=== PATIENT | female | born 1955 | race Caucasian/White ===

== ENCOUNTER 2017-02-06 23:11 | Emergency (ER) | payer BC, OTHER ==
[~2017-02-06] VITALS: Ht 152.4 cm; Wt 47.2 kg
[~2017-02-06 23:11] MED LIST: HYDROCODONE; IBUP-1060 PO; UNK CHOLESTEROL MED; UNK HTN MED
[2017-02-06 23:21] VITALS: BP 128/69
--- NOTE | 2017-02-06 23:23 | PHYS DOC ---
Past Medical History Past Medical History: High Cholesterol, Hypertension Additional Past Medical Histor: chronic back pain Past Surgical History: Other Additional Past Surgical Histo: pelvic fx repair, back sx Alcohol Use: Occasionally Drug Use: None Adult General Chief Complaint Chief Complaint: KNEE INJURY HPI HPI Patient is a 61 year old female presents to the emergency department stating that she was trying to go over a wooden gate that she uses to keep her dog's in 1 location. She states that she fell injuring her right knee. She denies any numbness or tingling into the foot. She does state that she has pain that radiates from the knee into the lower leg. Review of Systems Review of Systems Constitutional: Denies fever or chills [] Eyes: Denies change in visual acuity, redness, or eye pain [] HENT: Denies nasal congestion or sore throat [] Respiratory: Denies cough or shortness of breath [] Cardiovascular: No additional information not addressed in HPI [] GI: Denies abdominal pain, nausea, vomiting, bloody stools or diarrhea [] : Denies dysuria or hematuria [] Musculoskeletal: Denies back pain. Right knee pain and discomfort Integument: Denies rash or skin lesions [] Neurologic: Denies headache, focal weakness or sensory changes [] Endocrine: Denies polyuria or polydipsia [] All other systems were reviewed and found to be within normal limits, except as documented in this note. Allergies Allergies Allergies Coded Allergies Type Severity Reaction Last Updated Verified Penicillins Allergy Unknown Hives 07/19/13 Yes naproxen Allergy Unknown hives, itching 07/19/13 Yes Physical Exam Physical Exam Constitutional: Well developed, well nourished, no acute distress, non-toxic appearance. [] HENT: Normocephalic, atraumatic, bilateral external ears normal, oropharynx moist, no oral exudates, nose normal. [] Eyes: PERRLA, EOMI, conjunctiva normal, no discharge. [] Neck: Normal range of motion, no tenderness, supple, no stridor. [] Cardiovascular:Heart rate regular rhythm Skin: Warm, dry, no erythema, no rash. [] Back: No tenderness Extremities: Right anterior knee tenderness, no cyanosis, no clubbing, ROM intact, no edema. Peripheral pulses 2+ cap refill brisk < 2 seconds. Patient with full ROM however does exhibit discomfort. Patient was noted to have swelling, no discoloration noted. Neurologic: Alert and oriented X 3, normal motor function, normal sensory function, no focal deficits noted. [] Psychologic: Affect normal, judgement normal, mood normal. [] Current Patient Data Vital Signs Vital Signs Date Time Temp Pulse Resp B/P (MAP) Pulse Ox O2 Delivery O2 Flow Rate FiO2 02/06/17 23:21 97.9 95 18 97 Room Air 97.9 EKG EKG [] Radiology/Procedures Radiology/Procedures [] Course & Med Decision Making Course & Med Decision Making Pertinent Labs and Imaging studies reviewed. (See chart for details) Right knee x-ray was negative for any bony abnormalities per Dr. Lema. Patient will be placed in a Gen wrap with recommendations for ice packs on 20 minutes off 20 minutes several times a day. Patient states that she can take ibuprofen. Therefore recommended ibuprofen 800 mg every 8 hours with food stop taking if he developed an upset stomach. Also states that she had been taking hydrocodone for severe pain and discomfort. She states that she has hydrocodone left over however they are 5 years old. Upon looking the patient up in [facility] patient last refill of hydrocodone was 08/02/16 for 60 pills. Patient was encouraged to follow up with her orthopedic doctor which she states she has. Patient was provided with signs and symptoms to return back to the emergency department. Also recommended elevation as much as possible. I've spoken with the patient and/or caregivers. I've explained the patient's condition, diagnosis and treatment plan based on information available to me at this time. I've answered the patient's and/or caregivers questions and addressed any concerns. The patient and/or caregivers have a good understanding the patient's diagnosis, condition and treatment plan as can be expected at this point. Vital signs have been stabilized. The patient's condition is stable for discharge from the emergency department. The patient will pursue further outpatient evaluation with her primary care provider or other designated consulting physician as outlined in the discharge instructions. Patient and/or caregivers are agreeable to this plan of care and follow-up instructions have been explained in detail. The patient and/or caregivers have received these instructions in written format and expressed understanding of these discharge instructions. The patient and her caregivers are aware that if any significant change in condition or worsening of symptoms should prompt him to immediately return to this of the closest emergency department. If an emergent department is not readily available I would encourage him to call 911. [] Dragon Disclaimer Dragon Disclaimer This electronic medical record was generated, in whole or in part, using a voice recognition dictation system. Departure Departure Impression: Primary Impression: Right knee pain Disposition: HOME, SELF-CARE Condition: STABLE Referrals: NO PCP (PCP) Patient Instructions: Elastic Bandage and RICE, Knee Sprain, [id number] Additional Instructions: Activity as tolerated Ibuprofen 800 mg every 8 hours with food, stop taking if you develop upset stomach Ice packs on 20 minutes and off 20 minutes several times a day Elevation as much as possible Wear the gen wrap for the next 7-10 days Followup with primary care provider or orthopedic in 7-10 days Return to emergency department as needed for signs and symptoms that become worse. Problem Qualifiers Primary Impression: Right knee pain Chronicity: unspecified Qualified Codes: M25.561 - Pain in right knee ANNA HOOKS APRN Feb 06, 2017 23:23
--- NOTE | 2017-02-07 07:50 | RAD ---
KNEE RIGHT 4V History:right knee pain and injury, injury tonight Comparison: None Findings:4 views of the right knee are submitted. No acute fracture or dislocation is identified by radiographs. There is mild osteoarthritic change. There is likely small loose body of the medial compartment. Impression: 1.No acute osseous abnormality is identified.
== END 2017-02-07 00:04 | disposition home or self-care (01) ==
LOC: ER 23:11
DX: S89.91XA Unspecified injury of right lower leg, initial encounter (principal); G89.29 Other chronic pain; E78.00 Pure hypercholesterolemia, unspecified; I10 Essential (primary) hypertension; Z88.0 Allergy status to penicillin; Z88.8 Allergy status to other drugs, medicaments and biological substances; W18.39XA Other fall on same level, initial encounter; Y93.89 Activity, other specified; Y99.8 Other external cause status; Y92.89 Other specified places as the place of occurrence of the external cause
CPT/HCPCS: 73564; 99284

== ENCOUNTER 2017-04-21 12:04 | Emergency (ER) | payer OTHER, BC ==
[2017-04-21 12:54] LABS: BILIRUBIN,URINE NEGATIVE (NEG); CLARITY,URINE CLEAR; COLOR,URINE YELLOW; GLUCOSE,URINE NEGATIVE (NEG); NITRITE,URINE NEGATIVE (NEG); PH,URINE 7.5; PROTEIN,URINE NEGATIVE (NEG-TRACE); UROBILINOGEN,URINE 0.2 mg/dL (0.2 mg/dL)
[2017-04-21 13:07] LABS: BACTERIA,URINE 0 /HPF (0-FEW); SQUAMOUS EPITHELIAL CELL,UR FEW /LPF
== END 2017-04-21 14:25 | disposition home or self-care (01) ==
LOC: ER 12:04
DX: R10.9 Unspecified abdominal pain (principal); M54.5 Low back pain; E78.00 Pure hypercholesterolemia, unspecified; G89.29 Other chronic pain; I10 Essential (primary) hypertension; Z87.442 Personal history of urinary calculi; Z88.0 Allergy status to penicillin; Z88.5 Allergy status to narcotic agent; V49.88XA Car occupant (driver) (passenger) injured in other specified transport accidents, initial encounter; Y93.89 Activity, other specified; Y99.8 Other external cause status; Y92.413 State road as the place of occurrence of the external cause
CPT/HCPCS: 72100; 72170; 81001; 87086; 99285-25

== ENCOUNTER 2018-11-10 10:41 | Emergency (ER) | payer OTHER ==
[~2018-11-10] VITALS: Ht 149.9 cm; Wt 48.5 kg
[2018-11-10] MEDS ORDERED: IV NORMAL SALINE 1000ML BAG 1,000 ML IV ONE (11:00)
[2018-11-10 11:26] LABS: BASO # 0.1 x10^3/uL (0.0-0.2); BASO % 1 % (0-3); EOS # 0.1 x10^3/uL (0.0-0.7); EOS % 1 % (0-3); HEMATOCRIT 44.9 % (36.0-47.0); HEMOGLOBIN 15.2 g/dL (12.0-15.5); LYMPH # 1.9 x10^3/uL (1.0-4.8); LYMPH % 27 % (24-48); MEAN CORPUSCULAR HEMOGLOBIN 31 pg (25-35); MEAN CORPUSCULAR HGB CONC 34 g/dL (31-37); MEAN CORPUSCULAR VOLUME 92 fL (79-100); MONO # 0.4 x10^3/uL (0.0-1.1); MONO % 6 % (0-9); NEUT # 4.9 x10^3/uL (1.8-7.7); NEUT % 66 % (31-73); PLATELET COUNT 259 x10^3/uL (140-400); RED BLOOD COUNT 4.89 x10^6/uL (3.50-5.40); RED CELL DISTRIBUTION WIDTH 12.8 % (11.5-14.5); WHITE BLOOD COUNT 7.3 x10^3/uL (4.0-11.0)
[2018-11-10 11:32] LABS: CALCIUM 8.9 mg/dL (8.5-10.1); CREATININE 0.7 mg/dL (0.6-1.0); GFR 84.8
[2018-11-10 11:38] LABS: ALBUMIN 3.9 g/dL (3.4-5.0); ALBUMIN/GLOBULIN RATIO 1.1 (1.0-1.7); TOTAL BILIRUBIN 0.5 mg/dL (0.2-1.0); TOTAL PROTEIN 7.3 g/dL (6.4-8.2)
--- NOTE | 2018-11-10 11:50 | EKG ---
[facility] [address] [place] [address] Test Date: 2018-11-10 Test Time: 11:03:38 Pat Name: JUMA BAKER Department: Room: Gender: F Boom Tender: : 1955 Requested By: BROOKE MANRIQUEZ Order Number: [id number] Reading MD: Marlo Mclaughlin MD Measurements Intervals [place] Rate: 75 P: 62 AL: 150 QRS: 57 QRSD: 84 T: 57 QT: 350 QTc: 393 Interpretive Statements SINUS RHYTHM Electronically Signed On 11-10-2018 18:15:45 CDT by Marlo Mclaughlin MD
--- NOTE | 2018-11-10 12:05 | PHYS DOC ---
Past Medical History Past Medical History: High Cholesterol, Kidney Stone, Other Additional Past Medical Histor: chronic back pain Past Surgical History: Other Additional Past Surgical Histo: uterine ablation, back surgery Alcohol Use: None Drug Use: None Adult General Chief Complaint Chief Complaint: NEAR SYNCOPE HPI HPI Patient is a 63 year old female who presents via EMS with complaining of near- syncope. Patient states she didn't eat breakfast this morning and was in [place] to take her dog to the vet clinic and running a lot and while standing in the vet clinic, felt dizzy and lightheadedness without chest pain, focal neuro deficit, nausea and vomiting, headache, blurred vision shortness of breath. Patient had a near-syncopal fall or head injury or loss of consciousness. EMS reported that patient had blood pressure of 80s with standing up and treated with IV fluid with improvement of her condition. Patient denies any problem at arrival to ER. Review of Systems Review of Systems Constitutional: Denies fever or chills [] Eyes: Denies change in visual acuity, redness, or eye pain [] HENT: Denies nasal congestion or sore throat [] Respiratory: Denies cough or shortness of breath [] Cardiovascular: No additional information not addressed in HPI [] GI: Denies abdominal pain, nausea, vomiting, bloody stools or diarrhea [] : Denies dysuria or hematuria [] Musculoskeletal: Denies back pain or joint pain [] Integument: Denies rash or skin lesions [] Neurologic: Denies headache, focal weakness or sensory changes [] Endocrine: Denies polyuria or polydipsia [] All other systems were reviewed and found to be within normal limits, except as documented in this note. Current Medications Current Medications Current Medications Medications (Trade) Dose Ordered Sig/Kip Start Time Stop Time Status Last Admin Dose Admin Sodium Chloride 1,000 ml @ 1,000 mls/hr 1X ONCE 11/10/18 11:00 11/10/18 11:59 Allergies Allergies Allergies Coded Allergies Type Severity Reaction Last Updated Verified Penicillins Allergy Unknown Hives 07/19/13 Yes naproxen Allergy Unknown hives, itching 07/19/13 Yes Physical Exam Physical Exam Constitutional: Well developed, well nourished, mild distress, non-toxic appearance. [] HENT: Normocephalic, atraumatic. Eyes: PERRLA, EOMI, conjunctiva normal, no discharge. [] Neck: Normal range of motion, no tenderness, supple, no stridor. [] Cardiovascular:Heart rate regular rhythm, no murmur [] Lungs & Thorax: Bilateral breath sounds clear to auscultation [] Abdomen: Bowel sounds normal, soft, no tenderness, no masses, no pulsatile masses. [] Skin: Warm, dry, no erythema, no rash. [] Back: No tenderness, no CVA tenderness. [] Extremities: No tenderness, no cyanosis, no clubbing, ROM intact, no edema. [] Neurologic: Alert and oriented X 3, no focal deficits noted. [] Psychologic: Affect normal, judgement normal, mood normal. [] Current Patient Data Vital Signs Vital Signs Date Time Temp Pulse Resp B/P (MAP) Pulse Ox O2 Delivery O2 Flow Rate FiO2 11/10/18 10:41 98.2 80 25 137/72 (93) 97 Room Air 98.2 Lab Values Laboratory Tests Test 11/10/18 11:15 White Blood Count 7.3 x10^3/uL (4.0-11.0) Red Blood Count 4.89 x10^6/uL (3.50-5.40) Hemoglobin 15.2 g/dL (12.0-15.5) Hematocrit 44.9 % (36.0-47.0) Mean Corpuscular Volume 92 fL (79-100) Mean Corpuscular Hemoglobin 31 pg (25-35) Mean Corpuscular Hemoglobin Concent 34 g/dL (31-37) Red Cell Distribution Width 12.8 % (11.5-14.5) Platelet Count 259 x10^3/uL (140-400) Neutrophils (%) (Auto) 66 % (31-73) Lymphocytes (%) (Auto) 27 % (24-48) Monocytes (%) (Auto) 6 % (0-9) Eosinophils (%) (Auto) 1 % (0-3) Basophils (%) (Auto) 1 % (0-3) Neutrophils # (Auto) 4.9 x10^3/uL (1.8-7.7) Lymphocytes # (Auto) 1.9 x10^3/uL (1.0-4.8) Monocytes # (Auto) 0.4 x10^3/uL (0.0-1.1) Eosinophils # (Auto) 0.1 x10^3/uL (0.0-0.7) Basophils # (Auto) 0.1 x10^3/uL (0.0-0.2) Sodium Level 142 mmol/L (136-145) Potassium Level 4.0 mmol/L (3.5-5.1) Chloride Level 106 mmol/L (98-107) Carbon Dioxide Level 27 mmol/L (21-32) Anion Gap 9 (6-14) Blood Urea Nitrogen 13 mg/dL (7-20) Creatinine 0.7 mg/dL (0.6-1.0) Estimated GFR (Cockcroft-Gault) 84.8 BUN/Creatinine Ratio 19 (6-20) Glucose Level 122 mg/dL (70-99) H Calcium Level 8.9 mg/dL (8.5-10.1) Magnesium Level 2.0 mg/dL (1.8-2.4) Total Bilirubin 0.5 mg/dL (0.2-1.0) Aspartate Amino Transferase (AST) 13 U/L (15-37) L Alanine Aminotransferase (ALT) 13 U/L (14-59) L Alkaline Phosphatase 67 U/L (46-116) Creatine Kinase 47 U/L (26-192) Troponin I Quantitative < 0.017 ng/mL (0.000-0.055) Total Protein 7.3 g/dL (6.4-8.2) Albumin 3.9 g/dL (3.4-5.0) Albumin/Globulin Ratio 1.1 (1.0-1.7) Laboratory Tests 11/10/18 11:15 Laboratory Tests 11/10/18 11:15 EKG EKG EKG interpreted by me. EKG at 1103 showed normal sinus rhythm at rate of 75, normal TN and QT intervals, no acute ST and T-wave elevation. Radiology/Procedures Radiology/Procedures [] Course & Med Decision Making Course & Med Decision Making Pertinent Labs and Imaging studies reviewed. (See chart for details) Evaluation of patient in ER showed 63-year-old female patient brought in by EMS because of a near syncope. Patient refused to have CT head and chest x-ray. Patient had unremarkable physical exam and labs and treated with IV fluid. Patient stated she does not getting enough liquid and did not have breakfast this morning and was under stress and does not want hospitalization. Patient felt better after treatment with IV fluid and didn't want to have urine test. I've spoken with the patient and/or caregivers. I've explained the patient's condition, diagnosis and treatment plan based on information available to me at this time. I've answered the patient's and/or caregivers questions and addressed any concerns. The patient and/or caregivers have a good understanding the patient's diagnosis, condition and treatment plan as can be expected at this point. Vital signs have been stabilized. The patient's condition is stable for discharge from the emergency department. The patient will pursue further outpatient evaluation with her primary care provider or other designated consulting physician as outlined in the discharge instructions. Patient and/or caregivers are agreeable to this plan of care and follow-up instructions have been explained in detail. The patient and/or caregivers have received these instructions in written format and expressed understanding of these discharge instructions. The patient and her caregivers are aware that if any significant change in condition or worsening of symptoms should prompt him to immediately return to this of the closest emergency department. If an emergent department is not readily available I would encoura ge him to call 911. Ketty Disclaimer Eir[place]on Disclaimer This electronic medical record was generated, in whole or in part, using a voice recognition dictation system. Departure Departure Impression: Primary Impression: Near syncope Additional Impression: Noncompliance by refusing service Disposition: 01 HOME, SELF-CARE (at 1205) Condition: IMPROVED Referrals: REENA MARK MD (PCP) Patient Instructions: Near-Syncope Additional Instructions: Drink plenty of liquids Follow-up with your primary care physician in 3-5 days Return to ER if not getting better Problem Qualifiers BROOKE MANRIQUEZ MD Nov 10, 2018 12:05
[2018-11-10 12:30] VITALS: BP 132/73
== END 2018-11-10 12:37 | disposition home or self-care (01) ==
LOC: ER 10:41
DX: R55 Syncope and collapse (principal); Z91.19 Patient's noncompliance with other medical treatment and regimen; E78.00 Pure hypercholesterolemia, unspecified; G89.29 Other chronic pain; Z87.442 Personal history of urinary calculi; Z88.0 Allergy status to penicillin; Z88.8 Allergy status to other drugs, medicaments and biological substances
CPT/HCPCS: 36415; 80053; 82550; 83735; 84484; 85025; 93005; 96360; 99285; J7030

== ENCOUNTER → 2020-01-01 | Outpatient (CLI) | payer OTHER ==
--- NOTE | 2020-01-01 15:22 | KCIC ---
2 views lumbar spine compared to similar study dated April 21, 2017 for low back pain with sciatica, history of pelvic fracture. FINDINGS: There is redemonstration of degenerative rotoscoliosis of the lumbar spine. Grade 1 anterolisthesis of L4 and L5 is again noted. Intervertebral disc spaces are well-maintained. No fracture or acute osseous or alignment abnormality is evident. Extensive aortoiliac atherosclerosis is seen. Degenerative facet arthrosis is present at the lower lumbar levels. IMPRESSION: 1. Stable lumbar radiographs, with grade 1 anterolisthesis of L4-L5 and lower lumbar facet arthrosis. 2. Extensive aortoiliac atherosclerosis. Electronically signed by: Rene Ash MD (01/01/2020 3:19 PM) [id number]
--- NOTE | 2020-01-01 15:23 | KCIC ---
Single AP view of the pelvis without comparison for low back pain with sciatica, history of pelvic fracture. FINDINGS: There is no acute fracture or osseous abnormality. Old healed x-ray of the left ischium and left superior pubic ramus are noted. 3 metallic radiopaque foreign bodies are evident throughout the soft tissues. These were all present on prior radiographs as well. IMPRESSION: 1. Postsurgical and posttraumatic changes in the pelvis with no acute osseous abnormality. Electronically signed by: Rene Ash MD (01/01/2020 3:21 PM) [id number]
== END ==
LOC: KCIC 12:51
PROVIDERS: ATTEND Nurse Practitioner Gerontology
DX: M47.816 Spondylosis without myelopathy or radiculopathy, lumbar region (principal); M54.42 Lumbago with sciatica, left side; M43.16 Spondylolisthesis, lumbar region; I70.0 Atherosclerosis of aorta; Z87.81 Personal history of (healed) traumatic fracture
CPT/HCPCS: 72100; 72170

== ENCOUNTER → 2020-01-22 | Outpatient (CLI) | payer OTHER ==
--- NOTE | 2020-01-22 16:44 | RAD ---
EXAM: Lower extremity arterial Doppler sonogram with ankle-brachial indices (HENRI). HISTORY: Claudication. TECHNIQUE: Doppler sonographic evaluation of the lower extremities was performed and pressure readings were assessed. FINDINGS: Right brachial pressure: 135 mmHg Left brachial pressure: 146 mmHg Right ankle pressure (dorsalis pedis artery): 148 mmHg Right ankle pressure (posterior tibial artery): 162 mmHg Right HENRI: 1.1 Left ankle pressure (dorsalis pedis artery): 153 mmHg Left ankle pressure (posterior tibial artery): 140 mmHg Left HENRI : 1.04 IMPRESSION: Normal bilateral ankle-brachial indices. Electronically signed by: Cristal Lopez MD (01/22/2020 4:41 PM) [id number]
== END ==
LOC: US 15:52 → EDSEX 16:00
PROVIDERS: ATTEND Nurse Practitioner Gerontology
DX: I73.9 Peripheral vascular disease, unspecified (principal)
CPT/HCPCS: 93922

== ENCOUNTER → 2020-10-17 | Outpatient (CLI) | payer OTHER ==
--- NOTE | 2020-10-17 15:29 | KCIC ---
MRI of the lumbar spine without contrast 10/18/2019 CLINICAL HISTORY: Low back pain which radiates down the left leg. TECHNIQUE: Unenhanced T1-weighted and T2-weighted sagittal and axial and inversion recovery sagittal images of the lumbar spine were obtained. FINDINGS: Very mild S-shaped curvature of the thoracolumbar spine is seen. Mild anterolisthesis of L4 in relation to L5 is noted. Degenerative signal changes are seen involving all of the disks of the l umbar spine. Degenerative signal changes are seen within the marrow surrounding these discs. The conu s medullaris is normal morphology, position, and signal characteristics. At the L1-2, L2-3 and L3-4 disc spaces there are mild generalized disc bulges. Degenerative changes a re seen involving the facet joints bilaterally. There is mild ligamentum flavum hypertrophy bilateral ly. There are small facet joint effusions bilaterally. These findings when combined do not result in significant central spinal canal or neural foraminal stenosis. At the L4-5 disc space there is a moderate generalized disc bulge. Degenerative changes are seen invo lving the facet joints bilaterally. There is moderate ligamentum flavum hypertrophy bilaterally. Ther e are small facet joint effusions, right greater than left. These findings when combined result in mo derate to severe central spinal canal stenosis. Mild bilateral neural foraminal stenosis is seen. At the L5-S1 disc space there is a mild generalized disc bulge. This is eccentric to the left. Degen erative changes are seen involving the facet joints, left greater than right. These findings when com bined do not result in significant central spinal canal stenosis. Mild to moderate left neural forami nal stenosis is seen. The right neural foramen is patent. IMPRESSION: The changes of degenerative disc disease are seen throughout the lumbar spine. These find ings result in moderate to severe central spinal canal stenosis at L4-5. Mild bilateral neural forami nal stenosis is seen at L4-5. Mild to moderate left neural foraminal stenosis is seen at L5-S1. Electronically signed by: Geovanny Lee MD (10/17/2020 3:26 PM) [id number]
== END ==
LOC: KCIC MRI 10:24
PROVIDERS: ATTEND Family Medicine
DX: M47.817 Spondylosis without myelopathy or radiculopathy, lumbosacral region (principal); M51.27 Other intervertebral disc displacement, lumbosacral region; M48.07 Spinal stenosis, lumbosacral region; M54.42 Lumbago with sciatica, left side; M43.8X5 Other specified deforming dorsopathies, thoracolumbar region
CPT/HCPCS: 72148

== ENCOUNTER → 2020-11-15 | Outpatient (CLI) | payer OTHER ==
[~2020-11-15] MED LIST changes: +CHOL10004 PO; +HYDR-2761 PO; +SIMV10TA15 PO
--- NOTE | 2020-11-15 12:32 | PDOC1 ---
INITIAL PAIN CONSULT DATE OF SERVICE: DOS: DATE: 11/15/20 TIME: 12:26 CHIEF COMPLAINT: Chief Complaint: Low back and left lower extremity pain HISTORY OF PRESENT ILLNESS: 65-year-old female presents with history of pain low back and left lower extremity for about 8 years for falling off a ladder when she was working at a [employer] has had pain in the back and leg since that time got better after some treatment she had in the past and outside facility which involved a "nerve block" on the left side. Patient reports he did very well for several years but now over the past 2 to 3 years the pain is been returning much more significantly patient reports is now in the low back rating the posterior gluteus posterior thigh posterior calf lateral thigh and calf as well on the left side only to the foot involving some numbness and tingling in the foot patient reports constant throbbing aching cramping burning in the leg and in the back is aching and cramping as well and sometimes cold sensation in the leg and the back. Patient did have MRI scan of the lumbar spine showing degenerative disc disease throughout the lumbar spine with moderate to severe central spinal canal stenosis L4-5 and mild bilateral neuroforaminal stenosis at L4-5 with moderate left neuroforaminal stenosis at L5-S1 with a eccentric generalized disc bulge to the left at L5-S1 as well. Patient rates disability rating 0-10 10 being worse with family home responsibilities patient 10 with recreation social activity session behavior 0 self-care life support activities. Patient reports it wakes her from sleep occasionally but not every night reports is not effective bowel bladder control does affect her ability to walk she is walking with a limp favoring the left lower extremity does not use any assistive device such as canes or walker to ambulate. Patient has had physical therapy and still doing exercises from the therapy also some pain treatment at outside facility is noted she is taking ibuprofen 800 mg twice daily also hydrocodone which decreases the pain to moderate extent about 50%. PAST MEDICAL HISTORY: PMH: Arthritis, chronic bronchitis, asthma, cigarette smoking, kidney stones PREVIOUS SURGERIES: Past Surgical Hx: Bilateral cataract extractions, fractured hip and pelvis, kidney stone extraction 1983 CURRENT MEDICATIONS: Current Meds: Active Scripts Medications Dose Route/Sig Max Daily Dose Days Date Category Dose Instructions Hydrocodone-Apap 5-325 (Hydrocodone Bit/Acetaminophen) 1 Tab Tablet 1 Tab PO PRN Q6HRS PRN 8/31/21 Reported Vitamin D3 (Vitamin D) 25 Mcg Tablet 25 Mcg PO DAILY 11/15/20 Reported 1,000 UNITS = 25 MCG Simvastatin 10 Mg Tablet Unknown Dose PO HS 11/15/20 Reported Ibuprofen 800 Mg Tablet 1 Tab PO TID 09/01/14 Reported ALLERGIES; Allergies: Coded Allergies: Penicillins (Verified Allergy, Unknown, Hives, 07/19/13) naproxen (Verified Allergy, Unknown, hives, itching, 07/19/13) FAMILY HISTORY: Family Hx: Cancers, heart disease, myocardial infarction, diabetes SOCIAL HISTORY: Social Hx: Patient does not drink alcohol smokes about half a pack cigarettes per day and has for many years does not use any illegal illicit recreational drugs is lives with her spouse lives locally in [place]. REVIEW OF SYSTEMS: ROS: Positive for those items mentioned in history of present illness, all systems are reviewed, otherwise negative ,and are complete full and well-documented on patient's chart. PHYSICAL EXAM: VS: Blood pressure is 140/81 pulse 72 respirations 16 temperature 98.3 F height is 4 foot 11 inches weight is 103 pounds PE: PHYSICAL EXAMINATION: GENERAL: The patient is awake, alert, oriented, appropriate, very pleasant in demeanor. HEENT: Shows normocephalic, atraumatic. Extraocular movements are intact and symmetrical. Oral cavity: Mucous membranes moist and pink. NECK: Shows anterior throat supple without palpable lymphadenopathy noted. Swallow reflex symmetrical. CHEST: Shows normal on inspection. Breath sounds are clear bilaterally, distant and coarse but no rales or rhonchi. HEART: Shows S1, S2 clear. No murmurs auscultated. ABDOMEN: Soft, nontender, nondistended, flat. No palpable organomegaly is noted. No rebound or guarding demonstrated. BACK: Shows spine grossly in the midline. Normal-appearing cervical lordotic curvature. There is increased thoracic kyphosis, some mild flattening of the lumbar lordotic curvature. Lumbar paraspinous muscles show symmetrical on inspection, on palpation shows some moderate tenderness diffusely throughout the upper, middle and lower distribution of the paraspinous muscles bilaterally and also into the lower thoracic paraspinous musculature, firm and tender, but without specific trigger points, without radiation of pain. The patient has good rotational motion of the lumbar spine, both laterally as well as extension and flexion without significant difficulty. No tenderness over the spinous processes, sacrum or sacroiliac regions. EXTREMITIES: Lower extremities show deep tendon reflexes 1+ in the patellar and tendo calcaneus tendons. Motor exam is 5 on a scale of 5 with right dorsiflexion, extension, quadriceps and hamstring flexion and 4/5 on the left. Peripheral pulses are 1 posterior tibial. No peripheral edema is noted bilaterally. Lower extremities are warm and dry to touch, equal in color and appearance. Straight leg raise noted to be positive on the left at approximately 35 degrees decreased with knee flexion, right side is negative. Gaenslen's and Ashu's maneuvers are negative as well. The patient is able to stand, stand on her toes without significant difficulty or loss of balance, walks with a favoring gait does appear to favor the left lower extremity and is limping not use any assistive devices to ambulate. SKIN: Shows warm and dry, good turgor. No edema. No sores, rashes or bruising throughout. IMPRESSION: Impression: 65-year-old female with long history of low back and left lower extremity pain status post injury 2012. MRI scan lumbar spine as noted Arthritis Chronic bronchitis Cigarette smoking Asthma Plan: Options were discussed with the patient including conservative management continued physical therapies and interventional techniques. Patient is already doing physical therapy exercises taking analgesics and narcotics she was like to pursue interventional techniques. We discussed a left-sided L5-S1 transforaminal epidural steroid injection using descriptions as well as anatomical models described procedure. Patient would like to proceed, will wait for preauthorization with insurance provider, once obtained plan to return for a left-sided L5-S1 level transforaminal epidural steroid injection with fluoroscopic guidance. In the meantime, patient will continue with stretching strength exercise as well as oral analgesics and anti-inflammatories as currently. CHRISTIANA WELLS MD Nov 15, 2020 12:32
== END | disposition home or self-care (01) ==
LOC: PNCL 11:20
PROVIDERS: ATTEND Anesthesiology
DX: M54.5 Low back pain (principal); M79.605 Pain in left leg; M51.36 Other intervertebral disc degeneration, lumbar region; M48.061 Spinal stenosis, lumbar region without neurogenic claudication; M19.90 Unspecified osteoarthritis, unspecified site; J45.909 Unspecified asthma, uncomplicated; Z88.0 Allergy status to penicillin; Z88.8 Allergy status to other drugs, medicaments and biological substances; Z82.49 Family history of ischemic heart disease and other diseases of the circulatory system; Z83.3 Family history of diabetes mellitus; Z79.899 Other long term (current) drug therapy; Z98.890 Other specified postprocedural states; Z87.891 Personal history of nicotine dependence
CPT/HCPCS: G0463

== ENCOUNTER → 2020-11-30 | Outpatient (CLI) | payer OTHER ==
[~2020-11-30] MED LIST changes: +BUPIVACAINE MPF 0.25% 10 ML VIAL. ONE; +IOHEXOL 180 MG/ML 10 ML VIAL. ONE; +methylPREDNISolone ACETATE 80 MG/ML VIAL. ONE
--- NOTE | 2020-11-30 12:17 | PDOC ---
Progress Note - Pain Clinic Date of Service: DOS: DATE: 11/30/20 TIME: 12:14 Diagnosis: Dx: Lumbar radiculopathy with lumbar degenerative disease and lumbar spinal stenosis History or Present Illness: HPI: 65-year-old female returns for follow-up status post initial evaluation complaining of pain low back left lower extremity posterior gluteus posterior thigh posterior calf and lateral thigh and calf to the ankle and foot patient reports is aching and cramping can be constant unbearable with walking standing changing positions patient reports is an 8 on scale 10 is worst least and average and 8 today. Patient reports is better with sitting or laying down but still waking her from sleep. Patient reports much worse with the first getting up out of bed walking and standing awaken her from sleep at least once or twice a night patient reports no loss of motor function no bowel or bladder incontinence. Physical Exam: VS: Blood pressure is 124/76 pulse 80 respirations 18 temperature 98.2 F weight is 101 pounds height is 4 feet 11 inches PE: PHYSICAL EXAMINATION: GENERAL: The patient is awake, alert, oriented, appropriate, very pleasant in demeanor HEENT: Shows normocephalic, atraumatic. Extraocular movements are intact and symmetrical. Oral cavity: Mucous membranes moist and pink. NECK: Shows anterior throat supple without palpable lymphadenopathy noted. Swallow reflex symmetrical. CHEST: Shows normal on inspection. Breath sounds are clear bilaterally, distant but no rales or rhonchi. HEART: Shows S1, S2 clear. No murmurs auscultated. ABDOMEN: Soft, nontender, nondistended. No palpable organomegaly is noted. BACK: Shows spine grossly in the midline. Normal-appearing cervical lordotic curvature. There is slightly increased thoracic kyphosis, some minor flattening of the lumbar lordotic curvature. Lumbar paraspinous muscles show symmetrical o n inspection, on palpation shows some moderate tenderness diffusely throughout the upper, middle and lower distribution of the paraspinous muscles, but without specific trigger points, without radiation of pain. The patient has good rotational motion of the lumbar spine, both laterally as well as extension and flexion without significant difficulty. EXTREMITIES: Lower extremities show deep tendon reflexes 1+ in the patellar and tendo calcaneus tendons. Motor exam is 5 on a scale of 5 with right dorsiflex ion, extension, quadriceps and hamstring flexion and 4/5 on the left. Peripheral pulses are 1+ posterior tibial. No peripheral edema is noted bilaterally. Lower extremities are warm and dry to touch, equal in color and appearance. SKIN: Shows warm and dry, good turgor. No edema. No sores, rashes or bruising throughout. Procedure: Procedure: Options discussed with the patient. Patient chart was reviewed as her current medication regimen updated current review of systems updated today as well. We will proceed with a left L5-S1 transforaminal epidural steroid injection today with fluoroscopic guidance. Risks were discussed including but not limited to: Bleeding, infection, possibility of epidural hematoma and subsequent neurological compromise, dural puncture, headaches, spinal cord and/or nerve damage, potential injection into the vertebral artery at that level and permanent ischemic damage, side effects of steroid medication, and poor results regarding pain control. Patient understands and wished to proceed. Patient will return to the clinic in approximate 2 weeks for follow-up, was counseled after prolonged, activity level, and side effects to be aware of. Medication Injected: Med Injected: Under sterile prep and drape patient was placed in prone position using C-arm fluoroscopic guidance to identify the L5-S1 distribution oblique and slightly cephalad angled C arm. The left L5-S1 target was identified and using lidocaine for anesthetizing the skin 22-gauge Michael pencil point needle was then used to enter the skin and into the subcutaneous tissues using direct C-arm fluoroscopic guidance to guide the needle into the transforaminal aspect of the left L5-S1 vertebrae this was confirmed with lateral views showing the needle tip in the superior aspect of the paravertebral region. Aspiration was noted to be negative, -1.5 cc of contrast was then injected with good spread both medially into the epidural space as well as laterally along the nerve root without uptake and without distribution and uptake on digital subtraction. At this time, a solution containing 2 cc of 0.25% bupivacaine and 80 mg of Depo- Medrol was then injected. Needle was withdrawn and sterile bandage was applied. Patient tolerated procedure well had no immediate complications Condition at Discharge: Condition at Discharge: Condition at discharge is stable, patient tolerated the procedure well and had no complications. CHRISTIANA WELLS MD Nov 30, 2020 12:17
== END | disposition home or self-care (01) ==
LOC: PNCL 11:14
PROVIDERS: ATTEND Anesthesiology
DX: M51.16 Intervertebral disc disorders with radiculopathy, lumbar region (principal); M48.061 Spinal stenosis, lumbar region without neurogenic claudication; F17.210 Nicotine dependence, cigarettes, uncomplicated; Z79.899 Other long term (current) drug therapy; Z88.0 Allergy status to penicillin; Z88.8 Allergy status to other drugs, medicaments and biological substances
CPT/HCPCS: 64483; J1040; J3490; Q9965